=== PATIENT | female | born 1985 | race Caucasian/White ===

== ENCOUNTER 2017-08-25 10:47 | Emergency (ER) | payer OTHER, SELFPAY ==
[2017-08-25 10:51] VITALS: BMI 25.0
[2017-08-25 10:53] VITALS: RESP 16; TEMP 98.4; O2SAT 100
--- NOTE | 2017-08-25 12:02 | ED PDOC ---
HPI: Psych/Substance Abuse Time Seen by Provider: 08/25/17 10:57 Chief Complaint (Nursing): Anxiety Chief Complaint (Provider): Psychiatric Evaluation History Per: Patient History/Exam Limitations: no limitations Onset/Duration Of Symptoms: Days (x1) Current Symptoms Are (Timing): Still Present Additional Complaint(s): 32 y/o female with a PMHx of bipolar disorder (no meds) presenting for psychiatric evaluation. Patient states she was on the bus today, on her way to work, when she started crying. Patient reports feeling depressed. She denies any suicidal or homicidal ideations. Past Medical History Reviewed: Historical Data, Nursing Documentation, Vital Signs Vital Signs: Last Vital Signs Temp 98.4 F 08/25/17 10:52 Pulse 69 08/25/17 10:52 Resp 16 08/25/17 10:52 BP 144/93 H 08/25/17 10:52 Pulse Ox 100 08/25/17 10:52 - Medical History PMH: Anxiety, Bipolar Disorder, Depression - Surgical History Surgical History: No Surg Hx - Family History Family History: States: Unknown Family Hx - Social History Current smoker - smoking cessation education provided: No Alcohol: None Drugs: Denies - Home Medications Home Medications: Ambulatory Orders Medication Instructions Recorded Nitrofurantoin Macrocrystals 100 mg PO BID #13 cap 08/25/17 [Macrobid] - Allergies Allergies/Adverse Reactions: Allergies Allergy/AdvReac Type Severity Reaction Status Date / Time No Known Allergies Allergy Verified 08/25/17 11:31 Review of Systems ROS Statement: Except As Marked, All Systems Reviewed And Found Negative Psych: Positive for: Depression. Negative for: Suicidal ideation Physical Exam - Reviewed Nursing Documentation Reviewed: Yes Vital Signs Reviewed: Yes - Physical Exam Appears: Positive for: No Acute Distress Head Exam: Positive for: ATRAUMATIC, NORMAL INSPECTION, NORMOCEPHALIC Skin: Positive for: Normal Color, Warm, Dry. Negative for: Rash Eye Exam: Positive for: EOMI, Normal appearance, PERRL Neck: Positive for: Normal, Painless ROM, Supple Cardiovascular/Chest: Positive for: Regular Rate, Rhythm. Negative for: Murmur Respiratory: Positive for: Normal Breath Sounds. Negative for: Respiratory Distress Gastrointestinal/Abdominal: Positive for: Normal Exam, Soft. Negative for: Tenderness Back: Positive for: Normal Inspection. Negative for: L CVA Tenderness, R CVA Tenderness, Vertebral Tenderness Extremity: Positive for: Normal ROM. Negative for: Pedal Edema, Deformity Neurologic/Psych: Positive for: Alert, Oriented (x3), Mood/Affect (flat). Negative for: Motor/Sensory Deficits - ECG O2 Sat by Pulse Oximetry: 100 (RA) Pulse Ox Interpretation: Normal Medical Decision Making Medical Decision Making: Impression: Crisis evaluation Plan: --Crisis evaluation --Urine dipstick --Glucose, POC, Blood --Reevaluation Pt cleared by Crisis for discharge. Scribe Attestation: Documented by Rhett Bangura, acting as a scribe for Mare Wharton MD. Provider Scribe Attestation: All medical record entries made by the Scribe were at my direction and personally dictated by me. I have reviewed the chart and agree that the record accurately reflects my personal performance of the history, physical exam, medical decision making, and the department course for this patient. I have also personally directed, reviewed, and agree with the discharge instructions and disposition. Disposition - Clinical Impression Clinical Impression: Depression, UTI (urinary tract infection) - Disposition Referrals: Deepika Ritter MD [Family Provider] - Disposition: Routine/Home Disposition Time: 14:19 Condition: STABLE Additional Instructions: FOLLOW-UP WITH PSYCH ADVISED. Prescriptions: Nitrofurantoin Macrocrystals [Macrobid] 100 mg PO BID #13 cap Instructions: Urinary Tract Infections in Adults, Depression Forms: [facility] ([place])
[2017-08-25 14:08] LABS: SQUAMOUS EPITHIAL 1 /hpf (0-5); URINE BACTERIA OCC (<OCC); URINE BILIRUBIN NEGATIVE (NEGATIVE); URINE BLOOD NEGATIVE (NEGATIVE); URINE CLARITY CLEAR (Clear); URINE COLOR YELLOW (YELLOW); URINE GLUCOSE (UA) NEG (Normal); URINE LEUKOCYTE ESTERASE TRACE Leu/uL (Negative); URINE PROTEIN NEGATIVE (NEGATIVE); URINE UROBILINOGEN 0.2-1.0 mg/dL (0.2-1.0)
[2017-08-25 15:05] VITALS: BP 117/78; PULSE 61
== END 2017-08-25 15:00 | disposition home or self-care (01) ==
LOC: H.ER 10:47
DX: F41.9 Anxiety disorder, unspecified (principal); N39.0 Urinary tract infection, site not specified; F32.9 Major depressive disorder, single episode, unspecified; F31.9 Bipolar disorder, unspecified